=== PATIENT | male | born 1985 | race Two or more races ===

== ENCOUNTER → 2024-06-08 | Outpatient (CLI) | payer OTHER, SELFPAY ==
--- NOTE | 2024-06-08 14:45 | XR_ITS ---
Examination: MRI left hand, without contrast Date and time of exam: June 09, 2024 1421 hours INDICATIONS: Hyperextension injury to the left third digit 4 weeks ago with persistent pain decreased strength in the finger Technique: Multiple axial sagittal and coronal images of the left hand have been obtained with the Siemens high-resolution 1.5 [employer] MRI scanner. Images obtained include T2-weighted fat-suppressed sagittal sections, TR 3500, TE 46, T2 weighted coronal fat suppressed images, TR 3050, TE 84, T2-weighted transverse fat suppressed images, TR 3260, TE 63, proton density transverse images, TR 4720 TE 46, and T1 weighted coronal images, TR 560, TE 13. Findings: Edema in the subcutaneous fatty tissue surrounding the third digit Flexor and extensor tendons appear intact Strain of the annular pulleys third digit at the level of the midportion proximal phalanx but annular pulleys are intact No occult fracture IMPRESSION: No occult fracture or bone contusion or marrow edema Moderate strain of the annular pulleys flexor tendons third digit at the level of the midportion proximal phalanx third digit
== END | disposition home or self-care (01) ==
LOC: SMRI 14:07
PROVIDERS: PCP Family Medicine; Referring Provider Physician Assistant; Visit Provider Physician Assistant
DX: S63.693 Other sprain of left middle finger (principal); X58.XXXD Exposure to other specified factors, subsequent encounter
CPT/HCPCS: 73218

== ENCOUNTER → 2024-08-05 | Outpatient (CLI) | payer OTHER, SELFPAY ==
--- NOTE | 2024-08-05 09:25 | XR_ITS ---
Examination: Hand, left 3 views Technique: Hand AP, oblique, lateral 3 views Date and time of exam: August 05, 2024 0928 hours INDICATIONS: Injury to the hand today, hand pain FINDINGS: No acute fracture No dislocation No foreign body IMPRESSION: No acute fracture
== END | disposition home or self-care (01) ==
PROVIDERS: PCP Nurse Practitioner Family; Referring Provider Nurse Practitioner Gerontology; Visit Provider Nurse Practitioner Gerontology
DX: M79.642 Pain in left hand (principal)
CPT/HCPCS: 73130